=== PATIENT | male | born 2000 | race Caucasian/White ===

== ENCOUNTER 2019-11-27 22:16 | Emergency (ER) | payer MEDICAID, SELFPAY ==
[2019-11-27 22:20] VITALS: BP 137/80; PULSE 79; RESP 16; TEMP 36.8; O2SAT 96; BMI 30.5
--- NOTE | 2019-11-27 22:28 | XRR_ITS ---
PROCEDURE INFORMATION: Exam: XR Chest, 1 View Exam date and time: 11/27/2019 10:39 PM Age: 19 years old Clinical indication: Chest pain; Type not specified; Additional info: Cp TECHNIQUE: Imaging protocol: XR of the chest Views: 1 view. COMPARISON: No relevant prior studies available. FINDINGS: Lungs: Unremarkable. No consolidation. Pleural space: Unremarkable. No pleural effusion. No pneumothorax. Heart/Mediastinum: Unremarkable. No cardiomegaly. Bones/joints: Unremarkable. XR/XR chest 1V portable [id number] IMPRESSION: No acute findings.
--- NOTE | 2019-11-27 22:28 | ECG_ITS ---
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 Measurements Intervals [place] Rate: 72 P: 27 GA: 144 QRS: 54 QRSD: 110 T: 34 QT: 366 QTc: 402 Interpretive Statements SINUS RHYTHM INDETERMINATE AXIS No previous ECG available for comparison Electronically Signed On 11-28-2019 0:23:41 CDT by Fernie Garland M.D. [id number]
--- NOTE | 2019-11-27 22:36 | ED_ITS ---
HPI - Chest Pain General: Chief Complaint: Chest Pain Stated Complaint: CP Time Seen by Provider: 11/27/19 22:25 Source: patient and EMS Mode of arrival: EMS Limitations: no limitations History of Present Illness: HPI narrative: 19-year-old male states he started having sharp chest pain at 8:00. He states that he has had no worsening or improving factors. He denies any shortness of breath or fever. He has no history of heart disease. He states his girlfriend just got a hospital day and was talking to her when he started having his chest pain. He has had no vomiting or diarrhea. complaint: chest pain Onset (ago): hour(s) Onset: during rest Pain location: substernal Pain radiation: none Severity: moderate Relieving factors: nothing Exacerbating factors: nothing Associated symptoms: Deny abdominal pain, dyspnea, fever(s), nausea or vomiting Review of Systems Const: Denies: fever(s), chills, body aches or change in appetite Eyes: Denies: blurry vision or eye discomfort ENMT: Denies: throat pain or dental pain Card: Reports: chest pain Resp: Denies: dyspnea GI: Denies: abdominal pain, nausea, vomiting or diarrhea : Denies: dysuria Musc: Denies: neck pain or back pain Skin/Breast: Denies: rash Neuro: Denies: headache(s) Psych: Denies: depression Jose Enrique/Lymph: Denies: easy bruising All/Imm: Denies: urticaria PFSH ED PFSH: Social History Smoking and tobacco status: current every day smoker Smoking risk assessment/counseling performed?: Yes Physical Exam Const: COMMON NORMALS: no acute distress, patient oriented x3 and healthy appearing HENMT: COMMON NORMALS: normocephalic and atraumatic HEAD & SCALP: normocephalic and atraumatic Eye: COMMON NORMALS: Equal, round and reactive pupils present and EOMs intact bilaterally PUPIL: Yes Equal, round and reactive pupils present Neck/C-Spine: COMMON NORMALS: full ROM and supple Chest: COMMONS NORMALS: normal inspection of the chest and normal palpation of entire chest wall Resp: COMMON NORMALS: normal respiratory effort, No retractions, No use of accessory muscles and clear to auscultation bilaterally AUSCULTATION: clear to auscultation bilaterally Cardio: COMMON NORMALS: regular rate, regular rhythm and No murmurs present (Cardio) RATE: regular rate RHYTHM: regular rhythm GI: COMMON NORMALS: Normal to inspection, nondistended, normoactive bowel sounds present, Soft to palpation, non-tender and no masses PALPATION: Yes Soft to palpation Extremity: COMMON NORMALS: normal to inspection and full ROM Neuro: COMMON NORMALS: patient oriented x3, moves all extremities and no focal motor deficits Psych: COMMON NORMALS: mental status grossly normal, Normal thought process present and cooperative THOUGHT PROCESS: Normal thought process present Skin: COMMON NORMALS: no rashes or lesions noted and no wounds GENERAL SKIN EXAM: no rashes or lesions noted Course Vital Signs: Vital signs: Vital Signs Temperature 98.2 F 11/27/19 22:20 Pulse Rate 79 11/27/19 22:20 Respiratory Rate 16 11/27/19 22:20 Blood Pressure 137/80 11/27/19 22:20 Pulse Oximetry 96 11/27/19 22:20 MDM - Chest Pain MDM Narrative: Medical decision making narrative: Patient presents here with chest pain that is atypical in nature. Patient's EKG along with troponin and x- ray are normal. He has no signs of acute coronary syndrome or pulmonary emb olism. Patient is stable for discharge and is to return if worsening. Lab Data: Labs: Lab Results 11/27/19 11/27/19 11/27/19 Range/Units 22:05 22:05 22:05 WBC 7.5 (4.0-10.0) 10^3/ uL RBC 5.08 (4.1-5.3) 10^6/u L Hgb 15.6 (11.7-16.6) g/dL Hct 45.4 (42.0-52.0) % MCV 89.4 (80-94) fL MCH 30.7 (28.0-34.0) pg MCHC 34.4 (30.0-36.0) g/dL RDW 12.5 (12.1-15.1) % Plt Count 212 (130-400) 10^3/c mm MPV 10.4 (7.4-10.4) fL Neut % (Auto) 53.4 % Lymph % (Auto) 32.7 % [place] % (Auto) 11.5 % Eos % (Auto) 1.5 % Baso % (Auto) 0.5 % Neut # (Auto) 4.01 (1.8-7.7) 10^3/u L Lymph # (Auto) 2.5 (0.8-4.8) 10^3/u L [place] # (Auto) 0.9 (0.2-0.9) 10^3/u L Eos # (Auto) 0.1 (0.0-0.8) 10^3/u L Baso # (Auto) 0.0 (0.0-0.1) 10^3/u L Nucleated RBC % (a uto) 0 % Nucleated RBCs # 0.0 /100WBC Sodium 138 (136-145) mmol/L Potassium 3.9 (3.5-5.1) mmol/L Chloride 99 (98-107) mmol/L Carbon Dioxide 25 (22-29) mmol/L Anion Gap 17.9 (5-19) BUN 15 (6-20) mg/dL Creatinine 1.0 (0.7-1.2) mg/dL GFR Calculation 94.3 (90-130) mL/min Glucose 99 (65-115) mg/dL Calculated Osmolal ity 282 L (285-295) mOsm/k g Calcium 10.1 (8.5-10.5) mg/dL Total Bilirubin 0.4 (0.15-1.2) mg/dL AST 28 (0-40) U/L ALT 41 (0-41) U/L Alkaline Phosphata se 120 (40-130) IU/L Troponin T Baselin e 6 (0-15) ng/L Total Protein 7.2 (6.6-8.7) g/dL Albumin 4.9 (3.5-5.2) g/dL Globulin 2.3 (1.3-4.6) g/dL Lipase 28 (13-60) U/L Imaging Data^: CXR: Attestation: I personally reviewed and interpreted this imaging study as follows: My impression: No acute abnormality EKG Data^: EKG 1: Attestation: I personally reviewed and interpreted this EKG as follows: EKG interpretation date: 11/27/19 EKG interpretation time: 22:43 Interpretation: nsr hr [address] or t wave abnormalities qrs 110 qtc 391 Discharge Plan Discharge Patient Disposition: Home Clinical Impression: Chest pain Qualifiers: Chest pain type: unspecified Qualified Code(s): R07.9 - Chest pain, unspecified Condition: Stable Prescriptions: New Naprosyn 500 mg tablet 500 mg PO BID PRN (Reason: pain) Qty: 20 RF: 0 Discharge Orders: Discharge Order (Routine); Ordered 11/27/19 Ordered By: Sergio Middleton Discharge Diet: Advance as tolerated Discharge Activity: Resume usual activity Patient Instructions: Chest Pain (ED) Coding Level of Care Code ED Patrol Police Sergeant for Chg Fwd Exam Comprehensive
[2019-11-27] MEDS: LORazepam 2 mg/mL INJ 1 mL 1 MG IVP (22:59)
[2019-11-27 23:01] LABS: Basophils % 0.5 %; Eosinophils # 0.1 10^3/uL (0.0-0.8); Eosinophils % 1.5 %; Hematocrit 45.4 % (42.0-52.0); Hemoglobin 15.6 g/dL (11.7-16.6); Lymphocytes # 2.5 10^3/uL (0.8-4.8); Lymphocytes % 32.7 %; Mean Corpuscular HGB Conc 34.4 g/dL (30.0-36.0); Mean Corpuscular Hemoglobin 30.7 pg (28.0-34.0); Mean Corpuscular Volume 89.4 fL (80-94); Mean Platelet Volume 10.4 fL (7.4-10.4); Monocytes # 0.9 10^3/uL (0.2-0.9); Monocytes % 11.5 %; Neutrophils # 4.01 10^3/uL (1.8-7.7); Neutrophils % 53.4 %; Nucleated Red Blood Cells % 0 %; Platelet Count 212 10^3/cmm (130-400); Red Blood Count 5.08 10^6/uL (4.1-5.3); Red Cell Distribution Width 12.5 % (12.1-15.1); White Blood Count 7.5 10^3/uL (4.0-10.0)
[2019-11-27 23:18] LABS: Troponin(5th) Baseline 6 ng/L (0-15)
[2019-11-27 23:37] LABS: Alanine Aminotransferase 41 U/L (0-41); Albumin Level 4.9 g/dL (3.5-5.2); Alkaline Phosphatase 120 IU/L (40-130); Aspartate Amino Transferase 28 U/L (0-40); Blood Urea Nitrogen 15 mg/dL (6-20); Calcium 10.1 mg/dL (8.5-10.5); Carbon Dioxide 25 mmol/L (22-29); Creatinine Clr Calc Pharmacy 140.3453; Globulin 2.3 g/dL (1.3-4.6); Glomerular Filtration Rate 94.3 mL/min (90-130); Glucose 99 mg/dL (65-115); Lipase 28 U/L (13-60); Total Bilirubin 0.4 mg/dL (0.15-1.2); Total Protein 7.2 g/dL (6.6-8.7)
[2019-11-27 23:48] LABS: Anion Gap 17.9 (5-19); Chloride 99 mmol/L (98-107); Osmolality Calculated 282 mOsm/kg (285-295); Potassium 3.9 mmol/L (3.5-5.1); Sodium 138 mmol/L (136-145)
--- NOTE | 2019-11-28 00:28 | ECG_ITS ---
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 Measurements Intervals [place] Rate: 75 P: 47 DC: 152 QRS: 39 QRSD: 112 T: 11 QT: 371 QTc: 415 Interpretive Statements SINUS RHYTHM INDETERMINATE AXIS MODERATE INTRAVENTRICULAR CONDUCTION DELAY [110+ ms QRS DURATION] Compared to ECG 11/27/2019 22:43:22 Intraventricular conduction delay now present Electronically Signed On 11-29-2019 16:07:31 CDT by Fritz Alanis M.D. [id number]
[2019-11-28 01:13] VITALS: BP 120/59; PULSE 84; RESP 16; TEMP 36.9; O2SAT 96
== END 2019-11-28 01:16 | disposition home or self-care (01) ==
PROVIDERS: Emergency Provider Emergency Medicine
DX: R07.9 Chest pain, unspecified (principal); F17.210 Nicotine dependence, cigarettes, uncomplicated
CPT/HCPCS: 12345; 71045; 80053; 83690; 84484; 85025; 93005; 96374; 96375; 99281; 99284; J2060

== ENCOUNTER → 2021-05-05 14:09 | Outpatient (BNVA) | payer MEDICAID, SELFPAY | PROVIDERS: Visit Provider Surgery | DX: Z11.52 Encounter for screening for COVID-19 (principal) | CPT/HCPCS: 87635 ==

== ENCOUNTER 2021-05-12 06:58 | Day surgery (SDC) | payer MEDICAID, SELFPAY ==
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
[2021-05-12 07:30] VITALS: BP 135/91; PULSE 92; RESP 18; TEMP 36.7; O2SAT 97
[2021-05-12] MEDS: sodium chloride 0.9% 1,000 ML 30 ML IV (07:53)
--- NOTE | 2021-05-12 08:20 | P.HP_ITS ---
Same Day Surgery H&P Indication for Procedure/HPI DATE OF PROCEDURE: May 12, 2021 CHIEF COMPLAINT/INDICATIONFOR SURGICAL PROCEDURE: EGD for nausea and vomiting PREOP DIAGNOSIS: upper gi symptoms PLANNED PROCEDRUE: Operation Date: 05/12/21 08:15 Proposed Procedures p EGD 97122 R11.2(Not Applicable) - Carloz Saunders MD Medications/Allergies* Home Medications Medication Instructions Recorded Confirmed Type cetirizine 10 mg PO DAILY PRN 05/11/21 05/12/21 History fluticasone propionate [Flonase] 1 spray INTRANASAL DAILY 05/11/21 05/12/21 History ibuprofen 600 mg PO QID PRN 05/11/21 05/12/21 History omeprazole 40 mg PO DAILY 05/11/21 05/12/21 History risperidone [Risperdal] 4 mg PO DAILY 05/11/21 05/12/21 History Allergies/Adverse Reactions Allergy/AdvReac Type Severity Reaction Status Date / Time Penicillins Allergy Unknown Verified 05/12/21 07:29 Current Medications: Generic Name Dose Route Start Last Admin Trade Name Freq PRN Reason Stop Dose Admin Sodium Chloride 1,000 mls @ 30 mls/hr 05/12/21 07:15 05/12/21 07:53 Sodium Chloride 0.9% IV 05/13/21 07:14 30 mls/hr .Q24H JONATHON Administration Pertinent History/Comorbid Conditions* Social History Smoking and tobacco status: current every day smoker Smoking risk assessment/counseling performed?: Yes Pertinent Exam Findings alert, oriented x 3 and regular rate & rhythm Recommendations Surgery/Procedure today Coding Level of Care Code Acute Senior Loan Officer for Flavia Diamond
[2021-05-12 08:34] VITALS: BP 120/56; PULSE 88; RESP 16; TEMP 36.2; O2SAT 96
[2021-05-12 08:44] VITALS: BP 122/62; PULSE 84; RESP 18; O2SAT 96
--- NOTE | 2021-05-12 13:51 | ANE.PACU2 ---
Inpatient post-anesthesia follow up: Airway intact: Yes Vital signs: Temperature 97.2 F Pulse Rate 84 Respiratory Rate 18 Blood Pressure 122/62 Pulse Oximetry 96 Oxygen Delivery Me thod Room Air Oxygen Flow Rate 4 Fraction of Inspir ed Oxygen Hydration adequate: Yes Nausea and vomiting: No Pain level: 2 Mental status: Baseline
== END 2021-05-12 09:04 | disposition home or self-care (01) ==
PROVIDERS: Visit Provider Surgery
PROC: 0DJ08ZZ Inspection of Upper Intestinal Tract, Via Natural or Artificial Opening Endoscopic (ICD-10-PCS; CPT 43235; principal; 2021-05-12 08:15)
DX: R11.2 Nausea with vomiting, unspecified (principal); F17.210 Nicotine dependence, cigarettes, uncomplicated; J45.909 Unspecified asthma, uncomplicated; K21.9 Gastro-esophageal reflux disease without esophagitis; K29.70 Gastritis, unspecified, without bleeding
CPT/HCPCS: 43239; 88305; 88342; J2704; J7030

== ENCOUNTER 2021-07-14 20:00 | Outpatient (CLI) | payer MEDICAID, SELFPAY | END 2021-07-14 20:01 | disposition home or self-care (01) | LOC: SLEEP 07-15 06:45 | PROVIDERS: Visit Provider Nurse Practitioner Family | DX: G47.10 Hypersomnia, unspecified (principal); R06.83 Snoring; R53.83 Other fatigue | CPT/HCPCS: 95810 ==

== ENCOUNTER 2021-07-22 06:42 | Outpatient (CLI) | payer MEDICAID, SELFPAY ==
--- NOTE | 2021-07-22 07:06 | US_ITS ---
WS: [id number] ULTRASOUND ABDOMEN LIMITED CLINICAL INFORMATION: R11.2 - Nausea with vomiting, unspecified COMPARISON: None. FINDINGS: Liver Size: Enlarged Craniocaudal length: 17.4 cm. Echogenicity: Coarse Surface nodularity: None. Mass (size and location): None. Bile ducts Intrahepatic ducts: Normal. Common bile duct diameter: 0.5 cm. Gallbladder Normal. Gallstones: None. Gallbladder sludge: None. Gallbladder wall thickening: None. Pericholecystic fluid: None. Sonographic De La Cruz sign: Absent. Pancreas Normal as visualized. Right kidney: Normal. Hydronephrosis: None. Size: 10.2 cm x 4.5 cm x 5.4 cm. Abdominal aorta and IVC Visualized portions are normal. Ascites: None. US/US gall bladder [id number] IMPRESSION: 1. Hepatomegaly with coarse echogenicity likely due to fatty infiltration. 2. Normal gallbladder. No cholelithiasis. Normal common bile duct. 3. No hydronephrosis in RIGHT kidney.
== END 2021-07-22 06:43 | disposition home or self-care (01) ==
LOC: RAD 06:45
PROVIDERS: PCP Nurse Practitioner Family; Visit Provider Surgery
DX: R11.2 Nausea with vomiting, unspecified (principal); R16.0 Hepatomegaly, not elsewhere classified
CPT/HCPCS: 76705

== ENCOUNTER 2021-08-17 07:32 | Outpatient (CLI) | payer MEDICAID, SELFPAY ==
[2021-08-17 08:34] LABS: Basophils % 0.6 %; Eosinophils # 0.1 10^3/uL (0.0-0.8); Hematocrit 47.3 % (42.0-52.0); Hemoglobin 16.3 g/dL (11.7-16.6); Lymphocytes # 1.9 10^3/uL (0.8-4.8); Lymphocytes % 27.2 %; Mean Corpuscular HGB Conc 34.5 g/dL (30.0-36.0); Mean Corpuscular Volume 90.1 fl (80-94); Mean Platelet Volume 10.1 fL (7.4-10.4); Monocytes # 0.8 10^3/uL (0.2-0.9); Monocytes % 11.2 %; Neutrophils # 4.03 10^3/uL (1.8-7.7); Neutrophils % 58.4 %; Nucleated Red Blood Cells % 0 %; Platelet Count 242 10^3/cmm (130-400); Red Blood Count 5.25 10^6/uL (4.1-5.3); Red Cell Distribution Width 12.3 % (12.1-15.1); White Blood Count 6.9 10^3/uL (4.0-10.0)
[2021-08-17 09:04] LABS: Alanine Aminotransferase 65 U/L (0-41); Albumin Level 4.8 g/dL (3.5-5.2); Alkaline Phosphatase 141 IU/L (40-130); Anion Gap 14.3 (5-19); Aspartate Amino Transferase 30 U/L (0-40); Blood Urea Nitrogen 17 mg/dL (6-20); Calcium 9.9 mg/dL (8.5-10.5); Carbon Dioxide 25 mmol/L (22-29); Chloride 104 mmol/L (98-107); Chol HDL Ratio 3.98 mg/dL (1.0-5.00); Cholesterol 175 mg/dL (0-200); Globulin 2.3 g/dL (1.3-4.6); Glomerular Filtration Rate 104.6 mL/min (90-130); Glucose 95 mg/dL (65-115); HDL Cholesterol 44 mg/dL (60-100); LDL Cholesterol Calculated 111 mg/dL (50-129); LDL HDL Ratio 2.52 RATIO (0.00-3.22); Osmolality Calculated 289 mOsm/kg (285-295); Potassium 4.3 mmol/L (3.5-5.1); Sodium 139 mmol/L (136-145); Thyroid Stimulating Hormone 2.01 uIU/mL (0.27-4.20); Total Bilirubin 0.5 mg/dL (0.15-1.2); Total Protein 7.1 g/dL (6.6-8.7); Triglycerides 100 mg/dL (0-150)
== END 2021-08-17 07:33 | disposition home or self-care (01) ==
LOC: LAB 07:34
PROVIDERS: PCP Nurse Practitioner Family; Visit Provider Psychiatry & Neurology Psychiatry
DX: F31.12 Bipolar disorder, current episode manic without psychotic features, moderate (principal)
CPT/HCPCS: 36415; 80053; 80061; 84443; 85025

== ENCOUNTER 2021-09-01 07:21 | Outpatient (CLI) | payer MEDICAID, SELFPAY ==
--- NOTE | 2021-09-01 08:00 | NM_ITS ---
WS: [id number] NUCLEAR MEDICINE HIDA SCAN CLINICAL INFORMATION: R11.2 - Nausea with vomiting, unspecified TECHNIQUE: Following intravenous administration of 8.2 mCi of technetium 99m mebrofenin, images of th e abdomen were obtained over the course of 60 minutes. Next, gallbladder ejection fraction was determ ined by obtaining preprandial and one-hour postprandial images of the gallbladder following oral wendy stion of Ensure. COMPARISON: Ultrasound gallbladder July 22, 2021 FINDINGS: Normal hepatic uptake at 5 minutes. Mild hepatomegaly. Normal hepatic excretion. Gallbladder is visua lized by 15 minutes. Normal common bile duct and small bowel activity. No evidence of acute cholecyst itis. Gallbladder ejection fraction 62% within normal limits. No evidence of chronic cholecystitis. NM/NM hepatobiliary w phar* [id number] IMPRESSION: 1. No evidence of acute or chronic cholecystitis. 2. Normal gallbladder ejection fraction 62% within normal limits.
== END 2021-09-01 07:22 | disposition home or self-care (01) ==
LOC: RAD 07:24
PROVIDERS: PCP Nurse Practitioner Family; Visit Provider Surgery
DX: R11.2 Nausea with vomiting, unspecified (principal)
CPT/HCPCS: 78227; A9537

== ENCOUNTER → 2021-09-07 14:47 | Outpatient (BNVA) | payer MEDICAID, SELFPAY | PROVIDERS: PCP Nurse Practitioner Family; Visit Provider Surgery | DX: R11.2 Nausea with vomiting, unspecified (principal) | CPT/HCPCS: 99213 ==

== ENCOUNTER 2021-10-05 13:22 | Outpatient (CLI) | payer MEDICAID, SELFPAY ==
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
== END 2021-10-05 13:23 | disposition home or self-care (01) ==
LOC: RADOUTREAD 13:34
PROVIDERS: PCP Nurse Practitioner Family; Visit Provider Nurse Practitioner Family
DX: S99.911A Unspecified injury of right ankle, initial encounter (principal); X58.XXXA Exposure to other specified factors, initial encounter
CPT/HCPCS: 73610

== ENCOUNTER 2021-12-01 16:13 | Emergency (ER) | payer MEDICAID, SELFPAY ==
[2021-12-01 16:17] VITALS: BP 134/92; PULSE 81; RESP 16; TEMP 36.8; O2SAT 98; BMI 33.0
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
[2021-12-01 17:08] LABS: Amphetamines Screen Urine Negative (Negative); Barbiturates Screen Urine Negative (Negative); Benzodiazepines Screen Urine Negative (Negative); Cocaine Screen Urine Negative (Negative); Opiate Screen Urine Negative (Negative); PCP Screen Urine Negative (Negative); THC Screen Urine Negative (Negative)
[2021-12-01 17:11] LABS: Basophils # 0.1 10^3/uL (0.0-0.1); Basophils % 0.7 %; Eosinophils # 0.1 10^3/uL (0.0-0.8); Eosinophils % 1.6 %; Hematocrit 43.6 % (42.0-52.0); Hemoglobin 15.4 g/dL (11.7-16.6); Lymphocytes # 1.9 10^3/uL (0.8-4.8); Lymphocytes % 27.2 %; Mean Corpuscular HGB Conc 35.3 g/dL (30.0-36.0); Mean Corpuscular Hemoglobin 30.6 pg (28.0-34.0); Mean Corpuscular Volume 86.7 fl (80-94); Mean Platelet Volume 10.4 fL (7.4-10.4); Monocytes # 0.9 10^3/uL (0.2-0.9); Monocytes % 12.6 %; Neutrophils # 4.07 10^3/uL (1.8-7.7); Neutrophils % 57.5 %; Nucleated Red Blood Cells % 0 %; Platelet Count 219 10^3/cmm (130-400); Red Blood Count 5.03 10^6/uL (4.1-5.3); Red Cell Distribution Width 12.5 % (12.1-15.1); White Blood Count 7.1 10^3/uL (4.0-10.0)
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
[2021-12-01 17:24] LABS: Alanine Aminotransferase 27 U/L (0-41); Albumin Level 4.3 g/dL (3.5-5.2); Alkaline Phosphatase 169 IU/L (40-130); Anion Gap 13.9 (5-19); Aspartate Amino Transferase 22 U/L (0-40); Blood Urea Nitrogen 9 mg/dL (6-20); Calcium 9.1 mg/dL (8.5-10.5); Carbon Dioxide 27 mmol/L (22-29); Chloride 103 mmol/L (98-107); Globulin 2.4 g/dL (1.3-4.6); Glomerular Filtration Rate 104.6 mL/min (90-130); Glucose 108 mg/dL (65-115); Lipase 20 U/L (13-60); Osmolality Calculated 289 mOsm/kg (285-295); Potassium 3.9 mmol/L (3.5-5.1); Salicylate 0.9 mg/dL (3-10); Sodium 140 mmol/L (136-145); Total Bilirubin 0.5 mg/dL (0.15-1.2); Total Protein 6.7 g/dL (6.6-8.7)
[2021-12-01 17:25] LABS: Acetaminophen < 5.0 ug/mL (10-30)
[2021-12-01 18:57] VITALS: BP 136/66; PULSE 73; RESP 18; O2SAT 97
== END 2021-12-01 18:59 | disposition home or self-care (01) ==
PROVIDERS: Emergency Provider Emergency Medicine; PCP Nurse Practitioner Family
DX: R45.850 Homicidal ideations (principal); R45.6 Violent behavior; F17.210 Nicotine dependence, cigarettes, uncomplicated
CPT/HCPCS: 36415; 80053; 80306; 80307; 83690; 85025; 99283

== ENCOUNTER 2023-04-26 19:00 | Emergency (ER) | payer MEDICAID, SELFPAY ==
[2023-04-26 19:08] VITALS: BP 166/82; PULSE 116; RESP 22; TEMP 36.9; O2SAT 88
--- NOTE | 2023-04-26 19:44 | XRR_ITS ---
PROCEDURE INFORMATION: Exam: XR Chest Exam date and time: 04/26/2023 7:56 PM Age: 23 years old Clinical indication: Cough TECHNIQUE: Imaging protocol: Radiologic exam of the chest. Views: 1 view. COMPARISON: CR XR chest 1V portable [id number] 11/27/2019 10:27 PM FINDINGS: Lungs: Unremarkable. No consolidation. Pleural spaces: Unremarkable. No pleural effusion. No pneumothorax. Heart/Mediastinum: Unremarkable. No cardiomegaly. Bones/joints: Unremarkable. XR/XR chest 1V portable [id number] IMPRESSION: No acute findings.
[2023-04-26 19:47] VITALS: BP 126/87; PULSE 83; RESP 16; TEMP 36.5; O2SAT 97; BMI 32.8
--- NOTE | 2023-04-26 19:55 | W.ED.SKABFB ---
HPI - Skin/Abscess/Foreign Bdy General: Chief complaint: Skin/Abscess/Foreign Body Stated complaint: chaffing, Time Seen by Provider: 04/26/23 19:44 History of Present Illness: 23-year-old male patient comes in today with irritation to the inguinal area. Patient reports waxing and waning of the rash for 2 to 3 years. Patient has been on skin barrier cream before with minimal to no relief. Patient appears nontoxic. Patient lives in assisted living home. Review of Systems General: Reports: 10 or more systems reviewed and unremarkable except in HPI and below Skin/Breast: Reports: rash PFSH ED PFSH: Medical History No pertinent past medical history Surgical History H/O esophagogastroduodenoscopy (05/12/21) Social History Smoking and tobacco/nicotine status: current every day tobacco/nicotine user Physical Exam Const: COMMON NORMALS: alert HENMT: COMMON NORMALS: normocephalic HEAD & SCALP: normocephalic Neck/C-Spine: COMMON NORMALS: full ROM Resp: COMMON NORMALS: normal respiratory effort and clear to auscultation bilaterally AUSCULTATION: clear to auscultation bilaterally Cardio: COMMON NORMALS: regular rate and regular rhythm RATE: regular rate RHYTHM: regular rhythm Back/Pelvis: COMMON NORMALS: thoracic and lumbar spine normal to inspection Extremity: COMMON NORMALS: full ROM Neuro: SENSORIUM/ORIENTATION: Yes alert Skin: COMMON NORMALS: turgor normal GENERAL SKIN EXAM: turgor normal RASHES: rashes noted (Inguinal rash redness and demarcation) Course Vital Signs: Vital signs: Vital Signs Temperature 97.7 F 04/26/23 19:47 Pulse Rate 83 04/26/23 19:47 Respiratory Rate 16 04/26/23 19:47 Blood Pressure 126/87 04/26/23 19:47 Pulse Oximetry 97 04/26/23 19:47 Oxygen Delivery Me thod Room Air 04/26/23 19:47 MDM - Skin/Abscess/Foreign Bdy Medicial Decision Making 23-year-old male patient comes in with rash to the inguinal area. On exam patient has a erythematous rash with demarcation to the inguinal area extending onto the buttocks. Patient appears nontoxic. Respirations are even lungs are clear to auscultation. Vital signs were abnormal in triage but with recheck in the room they were normal. Suspect that the initial vital signs were missed charted. Chest x-ray was performed because of initial O2 saturation was 88%, chest x-ray was normal. Differential diagnosis includes not limited to intertrigo, tinea cruris, eczema. Will treat patient with clotrimazole cream 2 times a day for 8 weeks, and treat with hydrocortisone for irritation. Patient reported understanding of care plan need for follow-up or return to ER. XR interpretation done by ED provider, pending radiology final review Discharge Plan Discharge Patient Disposition: Home Clinical Impression: Tinea cruris Condition: Stable Prescriptions: New clotrimazole 1 % cream 1 applic topical BID 56 Days Qty: 45 0RF hydrocortisone 1 % cream 1 applic topical TID PRN (Reason: skin irritation) Qty: 28.4 0RF No Action sucralfate [Carafate] 1 gram tablet 1 g PO TID PRN (Reason: abdominal pain) 30 Days Qty: 90 0RF pantoprazole [Protonix] 40 mg tablet,delayed release (DR/EC) 40 mg PO DAILY 30 Days Qty: 30 3RF cetirizine 10 mg tablet 10 mg PO DAILY PRN (Reason: sneezing) ibuprofen 600 mg tablet 600 mg PO QID PRN (Reason: Pain) risperidone [Risperdal] 4 mg Tablet 4 mg PO DAILY fluticasone propionate 50 mcg/actuation [place],Suspension 1 spray INTRANASAL DAILY Discharge Orders: Discharge ED (Routine); Ordered 04/26/23 Ordered By: Sebastián Rosa Referrals: Paige Marti FNP [Primary Care Provider] - Discharge Diet: Usual diet Discharge Activity: Increase activity as tolerated Patient Instructions: Tinea Cruris Activity Restrictions/Additional Instructions: Use clotrimazole cream twice a day for the next 8 weeks to the groin and buttocks. Use hydrocortisone cream 1% 3 times a day as needed for irritation of the skin. Follow-up with primary care and 2 weeks for recheck. Return to ED for new concerns. Coding Level of Care Code ED [employer] for [employer]
== END 2023-04-26 20:12 | disposition home or self-care (01) ==
PROVIDERS: Emergency Provider Nurse Practitioner Family; PCP Nurse Practitioner Family
DX: B35.6 Tinea cruris (principal); Z72.0 Tobacco use
CPT/HCPCS: 71045; 99283